=== PATIENT | female | born 1980 | race African-American/Black ===

== ENCOUNTER 2018-09-18 07:42 | Emergency (ER) | payer BC ==
[2018-09-18] MEDS ORDERED: ACETAMINOPHEN 325 MG TABLET PO ONE (08:14)
[2018-09-18] MEDS ORDERED: DEXAMETHASONE SOD PHOS INJ 10 MG/1 ML VIAL IM ONE (09:09)
[2018-09-18] MEDS ORDERED: PENICILLIN V POTASSIUM 500 MG TABLET PO ONE (09:22)
--- NOTE | 2018-09-18 09:22 | ER Document Report ---
HPI - HPI Patient complains to provider of: sore throat, headache, body aches Time Seen by Provider: 09/18/18 08:51 Pain Level: 5 Context: Past medical history presents the emergency department for sore throat, headache, fever, body aches x2 days. She was traveling with a sick contact diagnosed with pneumonia over the weekend. Along with the above symptoms she states that she feels weak. She denies chills, earache, vision changes, neck s tiffness, shortness of breath or chest pain, nausea vomiting diarrhea, urinary symptoms, abdominal pain. No other complaints. - REPRODUCTIVE Reproductive: DENIES: : - DERM Skin Color: Normal Past Medical History - Social History Smoking Status: Unknown if Ever Smoked Family History: None Patient has suicidal ideation: No Patient has homicidal ideation: No Renal/ Medical History: Denies: Hx Peritoneal Dialysis Vertical Provider Document - CONSTITUTIONAL Notes: PHYSICAL EXAMINATION: Reviewed vital signs and charting by RN GENERAL: Well-appearing, well-nourished and in no acute distress. HEAD: Atraumatic, normocephalic. No scalp deformity, depression, or crepitance. EYES: Pupils are 3 mm and equal/round/reactive to light, extraocular movements intact, sclera anicteric, conjunctiva are normal. ENT: Nares patent bilaterally, oropharynx erythematous with bilateral exudate and 2+ tonsillar hypertrophy. Moist mucous membranes. NECK: Normal range of motion, supple with lymphadenopathy and tenderness. LUNGS: Breath sounds present, equal, and clear to auscultation bilaterally. No wheezes, rales, or rhonchi. HEART: Regular rate and rhythm without murmurs, rubs, or gallops. 2+ peripheral pulses. Normal capillary refill. ABDOMEN: Soft, nontender, nondistended. Normoactive bowel sounds. No guarding, no rebound. No masses appreciated. EXTREMITIES: Normal range of motion, no pitting or edema. No cyanosis. NEUROLOGICAL: No focal neurological deficits. Moves all extremities spontaneously and on command. PSYCH: Normal mood, normal affect. No suicidal thoughts/ideations. No homocidal thoughts/ideations. No hallucinations. SKIN: Warm, dry, normal turgor, no rashes or lesions noted. - INFECTION CONTROL TRAVEL OUTSIDE OF THE [place] IN LAST 30 DAYS: No Course - Re-evaluation Re-evalutation: 09/18/18 09:19 Positive rapid strep. We will give dexamethasone 10 mg IM 1 time and a prescription for penicillin VK twice daily x10 days. She will receive first dose here in the emergency department. Patient received Tylenol and says it did help her throat. Her heart rate is in the low 100s but she is febrile and is in pain so I do not feel this is out of proportion to her symptoms. Stable for discharge. - Vital Signs Vital signs: Temp Pulse Resp BP Pulse Ox 102.1 F H 108 H 18 143/96 H 99 09/18/18 07:58 09/18/18 07:58 09/18/18 07:58 09/18/18 07:58 09/18/18 07:58 Discharge - Discharge Clinical Impression: Strep throat Condition: Good Disposition: HOME, SELF-CARE Instructions: Acetaminophen, Fever ([facility]), Penicillin V K ([facility]), Sore Throat ([facility]), Strep Throat ([facility]) Additional Instructions: You have been diagnosed with strep throat based on a positive strep test. You have been treated with a dose of penicillin here in the emergency department and will need to take the penicillin VK 2 times per day for 10 days. You have also been given a dose of steroids to help with your throat discomfort. Please continue to take ibuprofen 600 mg every 6 hours or Tylenol 1000 mg every 6 hours as needed for throat discomfort. You can also gargle with salt water. Continue to drink plenty of fluids. Follow-up with your primary care doctor in the next several days. Return if you become unable to swallow, have difficulty breathing, pass out, have persistent vomiting that prevents you from being able to tolerate fluids, or have any other symptoms that are concerning to you.
[2018-09-18 09:38] VITALS: BP 125/89
== END 2018-09-18 09:37 | disposition home or self-care (01) ==
LOC: ER 07:42
DX: J02.0 Streptococcal pharyngitis (principal); R51 Headache; R50.9 Fever, unspecified; R53.1 Weakness
CPT/HCPCS: 99283; 96372; 87880; J1100